=== PATIENT | male | born 1985 | race Caucasian/White ===

== ENCOUNTER 2016-10-03 09:25 | Emergency (ER) | payer MEDICAID ==
[~2016-10-03] VITALS: Ht 182.9 cm; Wt 143.0 kg
[~2016-10-03 09:25] MED LIST: ADVIL; [UNRECOGNIZED DRUG - CODE]
[2016-10-03] MEDS ORDERED: PHENAZOPYRIDINE HCL 100MG TABLET PO ONE (10:45)
[2016-10-03] MEDS ORDERED: KETOROLAC 60MG/2ML VIAL IM ONE (11:15)
[2016-10-03 11:51] VITALS: BP 141/87
== END 2016-10-03 14:02 | disposition home or self-care (01) ==
LOC: ER 12:25
DX: K08.89 Other specified disorders of teeth and supporting structures (principal); F17.210 Nicotine dependence, cigarettes, uncomplicated; I10 Essential (primary) hypertension; E78.00 Pure hypercholesterolemia, unspecified
CPT/HCPCS: 96372; 99283; J1885

== ENCOUNTER 2017-06-08 12:57 | Emergency (ER) | payer MEDICAID ==
[~2017-06-08] VITALS: Ht 182.9 cm; Wt 143.0 kg
[2017-06-08 14:13] VITALS: BP 155/93
== END 2017-06-08 19:05 | disposition left against medical advice (07) ==
LOC: ER 14:23
DX: R10.9 Unspecified abdominal pain (principal); Z53.21 Procedure and treatment not carried out due to patient leaving prior to being seen by health care provider

== ENCOUNTER 2018-03-14 15:09 | Emergency (ER) | payer MEDICAID ==
[~2018-03-14] VITALS: Ht 182.9 cm; Wt 155.0 kg
[2018-03-14 15:17] VITALS: BP 143/87
== END 2018-03-14 18:26 | disposition left against medical advice (07) ==
LOC: ER 16:18
DX: Z53.21 Procedure and treatment not carried out due to patient leaving prior to being seen by health care provider (principal); I10 Essential (primary) hypertension